=== PATIENT | female | born 1930 | race Caucasian/White ===

== ENCOUNTER 2016-03-07 11:23 | Emergency (ER) | payer MEDICARE, BC ==
[~2016-03-07] VITALS: Ht 152.4 cm; Wt 52.6 kg
[~2016-03-07 11:23] MED LIST: ALBUTEROL0.83 MG/ML IH; ASPIRIN 32325 MG/TAB PO; ASPIRIN 81M81 MG/TA2 PO; ASPIRIN E.C. 8181 MG PO; ATIVAN 1MG T1 MG/TAB PO; CARDIZEM CD 24240 MG PO; CARTIA XT120 MG PO; CARTIA XT240 MG PO; CELEXA10 MG PO; FENOFIBRATE54 MG PO; HCTZ 25MG25 MG PO; HCTZ PO; HCTZ12.5TAB PO; LABETALOL200 MG PO; LEVAQUIN 750MG750 M1 PO; LIPITOR20 MG PO; MACROBID 1100 MG/CAP PO; MUCINEX 60600 MG/TA1 PO; NORMODYNE100 MG PO; NORMODYNE200 MG PO; NORVASC 10MG10 MG PO; NORVASC5 MG PO; NYSTATIN OR100 MU/ML PO; PERFOROMIS20 MCG/2 M IH; PLAVIX 75MG TAB75 MG PO; PREDNISONE20 MG PO; RT SPIRIVA18 MCG IH; TRANDATE 200MG200 MG PO; ULTRAM 50MG TAB50 MG PO; ZOCOR 10MG10 MG PO; ZOCOR 40MG40 MG PO; ZOCOR40 MG PO
[2016-03-07 11:32] VITALS: TEMP 98
[2016-03-07] MEDS ORDERED: CORDARONE200 MG/TAB PO (12:13)
[2016-03-07] MEDS ORDERED: XARELTO20 MG PO (12:15)
[2016-03-07] MEDS ORDERED: NORVASC 10MG10 MG PO (13:49)
[2016-03-07 14:08] VITALS: BP 183/99; PULSE 88
== END 2016-03-07 14:10 | disposition home or self-care (01) ==
LOC: COL.ER 11:23
DX: I10 Essential (primary) hypertension (principal); R51 Headache

== ENCOUNTER 2016-03-10 09:02 | Outpatient (CLI) | payer MEDICARE, BC ==
[~2016-03-10] VITALS: Ht 152.4 cm; Wt 51.4 kg
[~2016-03-10 09:02] MED LIST changes: +CORDARONE200 MG/TAB PO; +XARELTO20 MG PO
[2016-03-10] MEDS ORDERED: PRINIVIL5 MG PO (09:39)
[2016-03-10] MEDS ORDERED: CARDIZEM CD 12120 MG PO (09:42)
[2016-03-10] MEDS ORDERED: NITROSTAT0.4 MG/TAB SL (09:43)
[2016-03-10 09:57] VITALS: BP 150/66; PULSE 79; TEMP 98.2
== END 2016-03-10 11:04 | disposition home or self-care (01) ==
LOC: EUO 09:02
DX: I48.91 Unspecified atrial fibrillation (principal); R94.31 Abnormal electrocardiogram [ECG] [EKG]

== ENCOUNTER 2016-06-05 06:58 | Observation (INO) | payer MEDICARE, BC ==
[~2016-06-05] VITALS: Ht 152.4 cm; Wt 49.9 kg
[~2016-06-05 06:58] MED LIST changes: +CARDIZEM CD 12120 MG PO; +NITROSTAT0.4 MG/TAB SL; +PRINIVIL5 MG PO
[2016-06-05 07:44] LABS: BASO # 0.1 (0.0-0.2); BASO % 0.6 % (0.0-2.0); EOS # 0.2 (0.0-0.7); EOS % 2.2 % (0-4.0); GRAN # 6.2 (1.4-6.5); GRAN % 77.2 % (42.2-75.2); HEMATOCRIT 37.8 % (37.0-47.0); HEMOGLOBIN 12.2 g/dl (12.5-16.0); LYMPH # 0.8 (1.2-3.4); LYMPH % 9.6 % (20.0-51.0); MEAN CELL VOLUME 86 fl (80.0-100.0); MEAN CORPUSCULAR HEMOGLOBIN 28 pg (27.0-31.0); MEAN CORPUSCULAR HGB CONC 32 g/dl (33.0-37.0); MEAN PLATELET VOLUME 10.6 fl (7.4-10.4); MONO # 0.8 (0.1-0.6); MONO % 10.3 % (1.7-9.3); PLATELET COUNT 311 K/mm3 (130-400); RED BLOOD COUNT 4.42 M/mm3 (4.10-5.30); REDCELL DISTRIBUTION WIDTH-CV 13.9 % (11.5-14.5); WHITE BLOOD COUNT 8.1 K/mm3 (4.8-10.8)
[2016-06-05 07:56] LABS: ADJUSTED CALCIUM 9.1 mg/dL (8.4-10.2); BILIRUBIN,TOTAL 0.7 mg/dL (0.0-1.0); CALCIUM 9.1 mg/dL (8.4-10.2); CREATININE, serum 0.97 mg/dL (0.52-1.25); POTASSIUM 4.3 mmol/L (3.4-5.0); TOTAL PROTEIN 6.5 gm/dL (6.4-8.2)
[2016-06-05 08:04] LABS: INR 1.1 (0.8-3.0); PROTHROMBIN TIME 12.4 SECONDS (9.7-12.8)
[2016-06-05 08:07] LABS: PARTIAL THROMBOPLASTIN TIME 56.4 SECONDS (26.0-37.0)
[2016-06-05 08:08] LABS: TROPONIN-I 0.016 ng/mL (0.000-0.034)
[2016-06-05 11:09] VITALS: PULSE 83; TEMP 98.3
[2016-06-05] MEDS ORDERED: HCTZ 25MG TAB25 MG PO (14:35)
[2016-06-05 16:33] VITALS: BP 148/60; PULSE 59; TEMP 98.1
[2016-06-05 19:52] VITALS: BP 149/48; PULSE 86; TEMP 98.3
[2016-06-06 00:39] VITALS: BP 139/77; PULSE 75; TEMP 97.5
[2016-06-06 04:04] VITALS: BP 150/83; PULSE 92; TEMP 97.8
[2016-06-06 07:30] VITALS: BP 176/76; PULSE 66; TEMP 98.7
[2016-06-06 11:30] VITALS: BP 155/90; PULSE 98; TEMP 97.5
== END 2016-06-06 14:50 | disposition home or self-care (01) ==
LOC: COL.ER 06:58 → MEDICAL 09:24
PROVIDERS: Family Medicine
DX: F41.9 Anxiety disorder, unspecified (principal); I50.9 Heart failure, unspecified; R00.2 Palpitations; R20.8 Other disturbances of skin sensation; R42 Dizziness and giddiness; I51.7 Cardiomegaly; R09.89 Other specified symptoms and signs involving the circulatory and respiratory systems; I25.10 Atherosclerotic heart disease of native coronary artery without angina pectoris; Z95.5 Presence of coronary angioplasty implant and graft; I25.2 Old myocardial infarction; I10 Essential (primary) hypertension; I73.9 Peripheral vascular disease, unspecified; Z95.828 Presence of other vascular implants and grafts; I48.91 Unspecified atrial fibrillation; K21.9 Gastro-esophageal reflux disease without esophagitis; Z87.891 Personal history of nicotine dependence
CPT/HCPCS: 99222-AI; G0378; J1940

== ENCOUNTER 2016-10-28 10:25 | Emergency (ER) | payer MEDICARE, BC ==
[~2016-10-28] VITALS: Ht 152.4 cm; Wt 49.7 kg
[~2016-10-28 10:25] MED LIST changes: +HCTZ 25MG TAB25 MG PO
[2016-10-28 10:27] VITALS: TEMP 98.4
[2016-10-28 11:42] LABS: BASO % 0.5 % (0.0-2.0); EOS # 0.2 (0.0-0.7); EOS % 1.7 % (0-4.0); GRAN % 81.2 % (42.2-75.2); HEMOGLOBIN 12.1 g/dl (12.5-16.0); LYMPH # 0.6 (1.2-3.4); LYMPH % 6.5 % (20.0-51.0); MEAN CELL VOLUME 88 fl (80.0-100.0); MEAN CORPUSCULAR HEMOGLOBIN 29 pg (27.0-31.0); MEAN CORPUSCULAR HGB CONC 33 g/dl (33.0-37.0); MONO # 0.8 (0.1-0.6); MONO % 9.5 % (1.7-9.3); PLATELET COUNT 250 K/mm3 (130-400); RED BLOOD COUNT 4.16 M/mm3 (4.10-5.30); REDCELL DISTRIBUTION WIDTH-CV 15.8 % (11.5-14.5); WHITE BLOOD COUNT 8.6 K/mm3 (4.8-10.8)
[2016-10-28 11:43] LABS: HEMATOCRIT 36.6 % (37.0-47.0)
[2016-10-28 11:52] LABS: ALANINE AMINOTRANSFERASE 24 U/L (9-52); ALBUMIN 3.8 gm/dL (3.5-5.0); ALKALINE PHOSPHATASE 54 U/L (50-136); ANION GAP 9 mmol/L (7-16); BILIRUBIN,TOTAL 0.8 mg/dL (0.0-1.0); BLOOD UREA NITROGEN 35 mg/dL (7-17); CALCIUM 8.8 mg/dL (8.4-10.2); CARBON DIOXIDE 25 mmol/L (22-30); CHLORIDE 100 mmol/L (98-107); CREATININE, serum 1.08 mg/dL (0.52-1.25); GLUCOSE 129 mg/dL (74-106); LIPASE 185 U/L (23-300); POTASSIUM 4.4 mmol/L (3.4-5.0); SODIUM 133 mmol/L (137-145); TOTAL PROTEIN 6.3 gm/dL (6.4-8.2)
[2016-10-28 11:53] LABS: C-REACTIVE PROTEIN < 0.5 mg/dL (0.0-0.9)
[2016-10-28 12:02] LABS: PH 6 (5-8); SQUAMOUS EPITHELIAL 0-2 /hpf; URINE APPEARANCE Clear; URINE BACTERIA None Seen /hpf; URINE BILIRUBIN Negative (NEGATIVE); URINE BLOOD 1+ (NEGATIVE); URINE COLOR Yellow; URINE GLUCOSE Negative (NEGATIVE); URINE KETONE Negative (NEGATIVE); URINE UROBILINOGEN Negative (NEGATIVE); URINE WBC 0-2 /hpf
[2016-10-28 14:46] VITALS: BP 165/64; PULSE 89
== END 2016-10-28 14:48 | disposition home or self-care (01) ==
LOC: COL.ER 10:25
PROVIDERS: Emergency Medicine
DX: R10.11 Right upper quadrant pain (principal); F41.9 Anxiety disorder, unspecified; R11.0 Nausea; R41.3 Other amnesia; M54.89 Other dorsalgia; Z79.02 Long term (current) use of antithrombotics/antiplatelets
CPT/HCPCS: J1885; J2405; J7030; Q9967

== ENCOUNTER → 2017-02-24 | Outpatient (REF) ==
[~2017-02-24] MED LIST changes: +CEFTIN 250250 MG/TAB PO; +INCRUSE EL62.5 MCG/A IH; +LASIX 20MG TABL20 MG PO; +LIPITOR 40MG TA40 MG PO; +XARELTO15 MG PO; +ZANTAC 150150 MG PO
== END ==
LOC: ZCOL.LAB 12:06
DX: Z01.89 Encounter for other specified special examinations (principal)

== ENCOUNTER → 2017-02-24 | Outpatient (REF) | LOC: ZLAB.WCH 11:43 | DX: Z01.89 Encounter for other specified special examinations (principal) ==

== ENCOUNTER → 2017-03-03 | Outpatient (REF) ==
[2017-03-03 13:05] LABS: COLLECTION METHOD CATHETER
[2017-03-03 13:15] LABS: MUCOUS Present /lpf; PH 6 (5-8); SQUAMOUS EPITHELIAL 0-2 /hpf; URINE APPEARANCE Clear; URINE BACTERIA None Seen /hpf; URINE BILIRUBIN Negative (NEGATIVE); URINE BLOOD Negative (NEGATIVE); URINE COLOR Straw; URINE GLUCOSE Negative (NEGATIVE); URINE KETONE Negative (NEGATIVE); URINE LEUKOCYTE ESTERASE Negative (NEGATIVE); URINE NITRATE Negative (NEGATIVE); URINE PROTEIN(semi-quant) Negative (NEGATIVE); URINE RBC 0-2 /hpf; URINE UROBILINOGEN Negative (NEGATIVE)
== END ==
LOC: ZCOL.LAB 13:03
PROVIDERS: Family Medicine
DX: Z01.89 Encounter for other specified special examinations (principal)

== ENCOUNTER 2017-03-20 18:28 | Inpatient (IN) | payer MEDICARE, BC ==
[~2017-03-20] VITALS: Ht 152.4 cm; Wt 47.6 kg
[2017-03-20] VITALS (54 sets, daily range): BP systolic 145; BP diastolic 76; PULSE 120; TEMP 100.6; O2SAT 91–100
[2017-03-20 19:35] LABS: MEAN CELL VOLUME 87 fl (80.0-100.0); MEAN CORPUSCULAR HGB CONC 33 g/dl (33.0-37.0); PLATELET COUNT 340 K/mm3 (130-400); RED BLOOD COUNT 3.49 M/mm3 (4.10-5.30); REDCELL DISTRIBUTION WIDTH-CV 13.6 % (11.5-14.5)
[2017-03-20 19:36] LABS: HEMATOCRIT 30.4 % (37.0-47.0); MEAN CORPUSCULAR HEMOGLOBIN 29 pg (27.0-31.0)
[2017-03-20 19:50] LABS: BAND 2 % (0-10); LYMPHOCYTE 3 % (20.0-51.0); NEUTROPHILS 90 % (42.0-75.2); PLATELET ESTIMATE NORMAL (NORMAL)
[2017-03-20 20:02] LABS: ALBUMIN 3.9 gm/dL (3.5-5.0); BILIRUBIN,TOTAL 0.8 mg/dL (0.0-1.0); C-REACTIVE PROTEIN 1.1 mg/dL (0.0-0.9); CREATININE, serum 1.2 mg/dL (0.52-1.25); POTASSIUM 3.6 mmol/L (3.4-5.0); TOTAL PROTEIN 6.5 gm/dL (6.4-8.2)
[2017-03-20 21:08] LABS: COLLECTION METHOD CLEAN CATCH
[2017-03-20 21:15] LABS: PH 5 (5-8); SQUAMOUS EPITHELIAL 0-2 /hpf; URINE APPEARANCE Clear; URINE BACTERIA None Seen /hpf; URINE BILIRUBIN Negative (NEGATIVE); URINE BLOOD Negative (NEGATIVE); URINE COLOR Yellow; URINE GLUCOSE Negative (NEGATIVE); URINE KETONE Negative (NEGATIVE); URINE LEUKOCYTE ESTERASE Negative (NEGATIVE); URINE NITRATE Negative (NEGATIVE); URINE PROTEIN(semi-quant) 1+ (NEGATIVE); URINE RBC 0-2 /hpf; URINE UROBILINOGEN Negative (NEGATIVE)
[2017-03-21] VITALS (1060 sets, daily range): BP systolic 110–143; BP diastolic 53–96; PULSE 76–116; TEMP 98.3–100; O2SAT 64–100
[2017-03-21 06:02] LABS: BASO % 0.2 % (0.0-2.0); EOS % 0.3 % (0-4.0); GRAN # 11.7 (1.4-6.5); GRAN % 86.9 % (42.2-75.2); LYMPH # 0.5 (1.2-3.4); MEAN CELL VOLUME 90 fl (80.0-100.0); MEAN CORPUSCULAR HGB CONC 32 g/dl (33.0-37.0); MEAN PLATELET VOLUME 10.1 fl (7.4-10.4); MONO # 1.1 (0.1-0.6); MONO % 8.1 % (1.7-9.3); PLATELET COUNT 293 K/mm3 (130-400); RED BLOOD COUNT 3.02 M/mm3 (4.10-5.30); REDCELL DISTRIBUTION WIDTH-CV 13.9 % (11.5-14.5)
[2017-03-21 06:13] LABS: HEMATOCRIT 27.2 % (37.0-47.0); HEMOGLOBIN 8.7 g/dl (12.5-16.0); MEAN CORPUSCULAR HEMOGLOBIN 29 pg (27.0-31.0)
[2017-03-21 06:17] LABS: CALCIUM 8.4 mg/dL (8.4-10.2); CREATININE, serum 1.08 mg/dL (0.52-1.25); MAGNESIUM 1.9 mg/dL (1.6-2.3); PHOSPHOROUS 3.5 mg/dL (2.5-4.5); POTASSIUM 3.5 mmol/L (3.4-5.0)
[2017-03-21 06:42] LABS: THYROID STIMULATING HORMONE 1.38 uIU/mL (0.465-4.680)
[2017-03-21] MEDS ORDERED: XARELTO20 MG PO (17:08)
[2017-03-21] MEDS ORDERED: HCTZ 25MG TAB25 MG PO (17:08)
[2017-03-21] MEDS ORDERED: TOPROL XL 25MG25 MG PO (17:09)
[2017-03-21] MEDS ORDERED: LASIX 20MG TABL20 MG PO (17:18)
[2017-03-21] MEDS ORDERED: ATIVAN 1MG T1 MG/TAB PO (17:18)
[2017-03-21] MEDS ORDERED: INCRUSE EL62.5 MCG/A IH (18:24)
[2017-03-21] MEDS ORDERED: IPRATROPIUM BROM3 M1 IH (18:28)
[2017-03-22] VITALS (911 sets, daily range): BP systolic 116–148; BP diastolic 51–88; PULSE 59–89; TEMP 97.5–99.2; O2SAT 65–100
[2017-03-22 06:15] LABS: MEAN CELL VOLUME 89 fl (80.0-100.0); MEAN CORPUSCULAR HGB CONC 33 g/dl (33.0-37.0); PLATELET COUNT 302 K/mm3 (130-400); RED BLOOD COUNT 2.95 M/mm3 (4.10-5.30); REDCELL DISTRIBUTION WIDTH-CV 13.8 % (11.5-14.5)
[2017-03-22 06:21] LABS: HEMATOCRIT 26.1 % (37.0-47.0); HEMOGLOBIN 8.6 g/dl (12.5-16.0); MEAN CORPUSCULAR HEMOGLOBIN 29 pg (27.0-31.0)
[2017-03-22 06:32] LABS: ALBUMIN 3.1 gm/dL (3.5-5.0); BILIRUBIN,TOTAL 1.1 mg/dL (0.0-1.0); CALCIUM 8.3 mg/dL (8.4-10.2); CREATININE, serum 1.15 mg/dL (0.52-1.25); POTASSIUM 3.5 mmol/L (3.4-5.0); TOTAL PROTEIN 5.7 gm/dL (6.4-8.2)
[2017-03-22 06:42] LABS: TROPONIN-I 0.016 ng/mL (0.000-0.034)
[2017-03-23] VITALS (569 sets, daily range): BP systolic 110–165; BP diastolic 52–98; PULSE 82–103; TEMP 96.2–97.9; O2SAT 73–97
[2017-03-23 05:41] LABS: MEAN CELL VOLUME 88 fl (80.0-100.0); MEAN CORPUSCULAR HGB CONC 32 g/dl (33.0-37.0); MEAN PLATELET VOLUME 10.1 fl (7.4-10.4); PLATELET COUNT 320 K/mm3 (130-400); RED BLOOD COUNT 2.84 M/mm3 (4.10-5.30); REDCELL DISTRIBUTION WIDTH-CV 13.7 % (11.5-14.5)
[2017-03-23 05:51] LABS: HEMATOCRIT 25.1 % (37.0-47.0); HEMOGLOBIN 8.1 g/dl (12.5-16.0); MEAN CORPUSCULAR HEMOGLOBIN 29 pg (27.0-31.0)
[2017-03-23 05:56] LABS: ALBUMIN 3.3 gm/dL (3.5-5.0); BILIRUBIN,TOTAL 0.5 mg/dL (0.0-1.0); CREATININE, serum 1.36 mg/dL (0.52-1.25); POTASSIUM 3.7 mmol/L (3.4-5.0); TOTAL PROTEIN 6.1 gm/dL (6.4-8.2)
[2017-03-24] VITALS (10 sets, daily range): BP systolic 126–172; BP diastolic 44–96; PULSE 58–108; TEMP 97.3–98.6
[2017-03-24 18:13] LABS: ARTERIAL BLD GAS O2 SATURATION 91.6 % (92-100); ARTERIAL BLD GAS TCO2 CT 28.1; ARTERIAL BLOOD GAS BASE EXCESS 2.9 (-2-2); ARTERIAL BLOOD GAS HCO3 26.9 meq/L (22-26); ARTERIAL BLOOD GAS PCO2 39.1 mmHg (35-45); ARTERIAL BLOOD GAS PO2 63.9 mmHg (80-100); ARTERIAL BLOOD GAS pH 7.46 (7.35-7.45)
[2017-03-24 20:53] LABS: ARTERIAL BLD GAS O2 SATURATION 90.2 % (92-100); ARTERIAL BLD GAS TCO2 CT 29.6; ARTERIAL BLOOD GAS BASE EXCESS 2.9 (-2-2); ARTERIAL BLOOD GAS HCO3 28.2 meq/L (22-26); ARTERIAL BLOOD GAS PCO2 46.6 mmHg (35-45)
[2017-03-25 04:23] VITALS: BP 140/60; PULSE 57; TEMP 98.2
[2017-03-25 06:24] LABS: MEAN CELL VOLUME 89 fl (80.0-100.0); MEAN CORPUSCULAR HGB CONC 32 g/dl (33.0-37.0); MEAN PLATELET VOLUME 9.7 fl (7.4-10.4); RED BLOOD COUNT 2.95 M/mm3 (4.10-5.30)
[2017-03-25 06:30] LABS: HEMATOCRIT 26.2 % (37.0-47.0); HEMOGLOBIN 8.4 g/dl (12.5-16.0); MEAN CORPUSCULAR HEMOGLOBIN 28 pg (27.0-31.0); PLATELET COUNT 517 K/mm3 (130-400)
[2017-03-25 06:31] LABS: CALCIUM 8.8 mg/dL (8.4-10.2); CREATININE, serum 1.07 mg/dL (0.52-1.25); POTASSIUM 4.2 mmol/L (3.4-5.0)
[2017-03-25 07:52] VITALS: BP 104/48; PULSE 118; TEMP 97.5
[2017-03-25 09:08] LABS: BAND 12 % (0-10); BASOPHIL 1 % (0-2); LYMPHOCYTE 6 % (20.0-51.0); NEUTROPHILS 80 % (42.0-75.2); OVALOCYTES 2+; PLATELET ESTIMATE INCREASED (NORMAL)
[2017-03-25 11:53] VITALS: BP 156/95; PULSE 104; TEMP 98.3
[2017-03-25 16:00] VITALS: BP 158/52; PULSE 84; TEMP 98.1
[2017-03-25 19:55] VITALS: BP 134/94; PULSE 98; TEMP 98
[2017-03-25 23:41] VITALS: BP 178/63; PULSE 89; TEMP 98.3
[2017-03-26] VITALS (7 sets, daily range): BP systolic 143–182; BP diastolic 56–83; PULSE 70–99; TEMP 97–98.4
[2017-03-26 06:41] LABS: MEAN CELL VOLUME 89 fl (80.0-100.0); MEAN CORPUSCULAR HGB CONC 32 g/dl (33.0-37.0); MEAN PLATELET VOLUME 9.5 fl (7.4-10.4); PLATELET COUNT 438 K/mm3 (130-400); RED BLOOD COUNT 2.73 M/mm3 (4.10-5.30); REDCELL DISTRIBUTION WIDTH-CV 13.9 % (11.5-14.5)
[2017-03-26 06:47] LABS: HEMATOCRIT 24.3 % (37.0-47.0); HEMOGLOBIN 7.8 g/dl (12.5-16.0); MEAN CORPUSCULAR HEMOGLOBIN 29 pg (27.0-31.0)
[2017-03-26 06:56] LABS: CALCIUM 8.4 mg/dL (8.4-10.2); CREATININE, serum 0.95 mg/dL (0.52-1.25); POTASSIUM 3.9 mmol/L (3.4-5.0)
[2017-03-26 10:29] LABS: BAND 3 % (0-10); EOSINOPHIL 1 % (0-4); LYMPHOCYTE 4 % (20.0-51.0); METAMYELOCYTE 2 % (0-0); NEUTROPHILS 82 % (42.0-75.2); NUCLEATED RED BLOOD CELL 1 (0-6); PLATELET ESTIMATE INCREASED (NORMAL)
[2017-03-26 10:30] LABS: ANISOCYTOSIS 1+; HYPOCHROMIA 1+; POIKILOCYTOSIS 1+
[2017-03-27 05:00] VITALS: BP 156/40; PULSE 74; TEMP 97.9
[2017-03-27 06:59] LABS: MEAN CELL VOLUME 89 fl (80.0-100.0); MEAN CORPUSCULAR HGB CONC 32 g/dl (33.0-37.0); MEAN PLATELET VOLUME 9.6 fl (7.4-10.4); PLATELET COUNT 507 K/mm3 (130-400); RED BLOOD COUNT 2.82 M/mm3 (4.10-5.30); REDCELL DISTRIBUTION WIDTH-CV 13.8 % (11.5-14.5)
[2017-03-27 07:08] LABS: CALCIUM 8.5 mg/dL (8.4-10.2); CREATININE, serum 0.84 mg/dL (0.52-1.25); POTASSIUM 4.1 mmol/L (3.4-5.0)
[2017-03-27 07:11] LABS: HEMATOCRIT 25.1 % (37.0-47.0); HEMOGLOBIN 7.9 g/dl (12.5-16.0); MEAN CORPUSCULAR HEMOGLOBIN 28 pg (27.0-31.0)
[2017-03-27 07:48] VITALS: BP 171/74; PULSE 73; TEMP 97.9
[2017-03-27 09:05] LABS: BAND 1 % (0-10); EOSINOPHIL 1 % (0-4); HYPOCHROMIA 2+; LYMPHOCYTE 7 % (20.0-51.0); METAMYELOCYTE 1 % (0-0); NEUTROPHILS 79 % (42.0-75.2); NUCLEATED RED BLOOD CELL 1 (0-6); PLATELET ESTIMATE INCREASED (NORMAL)
[2017-03-27 10:55] VITALS: BP 137/89; PULSE 89; TEMP 98
[2017-03-27 15:33] VITALS: BP 138/89; PULSE 105; TEMP 99.7
[2017-03-27 19:47] VITALS: BP 142/84; PULSE 60; TEMP 98.7
[2017-03-27 23:56] VITALS: BP 163/90; PULSE 81; TEMP 98.5
[2017-03-28 03:28] VITALS: BP 151/94; PULSE 73; TEMP 97
[2017-03-28 06:31] LABS: MEAN CELL VOLUME 90 fl (80.0-100.0); MEAN CORPUSCULAR HGB CONC 31 g/dl (33.0-37.0); MEAN PLATELET VOLUME 9.3 fl (7.4-10.4); PLATELET COUNT 482 K/mm3 (130-400); RED BLOOD COUNT 2.79 M/mm3 (4.10-5.30)
[2017-03-28 06:56] LABS: CALCIUM 8.5 mg/dL (8.4-10.2); CREATININE, serum 1.02 mg/dL (0.52-1.25); POTASSIUM 4.1 mmol/L (3.4-5.0)
[2017-03-28 06:57] LABS: HEMATOCRIT 25.2 % (37.0-47.0); HEMOGLOBIN 7.8 g/dl (12.5-16.0); MEAN CORPUSCULAR HEMOGLOBIN 28 pg (27.0-31.0)
[2017-03-28 07:45] VITALS: BP 175/79; PULSE 81; TEMP 98
[2017-03-28 07:50] LABS: BAND 2 % (0-10); EOSINOPHIL 3 % (0-4); HYPOCHROMIA 2+; LYMPHOCYTE 9 % (20.0-51.0); METAMYELOCYTE 2 % (0-0); NEUTROPHILS 76 % (42.0-75.2); NUCLEATED RED BLOOD CELL 1 (0-6); PLATELET ESTIMATE INCREASED (NORMAL)
[2017-03-28 09:56] LABS: INR 2.5 (0.8-3.0); PROTHROMBIN TIME 29.8 SECONDS (9.7-12.8)
[2017-03-28 11:51] VITALS: BP 140/55; PULSE 75; TEMP 98.4
[2017-03-28 12:27] LABS: PARTIAL THROMBOPLASTIN TIME 73.8 SECONDS (26.0-37.0)
[2017-03-28 15:04] LABS: PARTIAL THROMBOPLASTIN TIME 69.9 SECONDS (26.0-37.0)
[2017-03-28 15:46] VITALS: BP 155/65; PULSE 79; TEMP 98.4
[2017-03-28 17:18] LABS: PARTIAL THROMBOPLASTIN TIME 70.5 SECONDS (26.0-37.0)
[2017-03-28 18:57] LABS: PARTIAL THROMBOPLASTIN TIME 69.9 SECONDS (26.0-37.0)
[2017-03-28 19:39] VITALS: BP 157/104; PULSE 92; TEMP 97.7
[2017-03-28 20:52] LABS: PARTIAL THROMBOPLASTIN TIME 66.7 SECONDS (26.0-37.0)
[2017-03-29 00:02] VITALS: BP 137/47; PULSE 78; TEMP 98
[2017-03-29 05:00] VITALS: BP 152/53; PULSE 81
[2017-03-29 07:05] LABS: MEAN CELL VOLUME 90 fl (80.0-100.0); MEAN CORPUSCULAR HGB CONC 31 g/dl (33.0-37.0); MEAN PLATELET VOLUME 9.7 fl (7.4-10.4); PLATELET COUNT 503 K/mm3 (130-400); RED BLOOD COUNT 2.75 M/mm3 (4.10-5.30); REDCELL DISTRIBUTION WIDTH-CV 14.2 % (11.5-14.5)
[2017-03-29 07:17] LABS: CALCIUM 8.4 mg/dL (8.4-10.2); CREATININE, serum 0.88 mg/dL (0.52-1.25); POTASSIUM 3.8 mmol/L (3.4-5.0)
[2017-03-29 07:18] LABS: HEMATOCRIT 24.7 % (37.0-47.0); HEMOGLOBIN 7.6 g/dl (12.5-16.0); MEAN CORPUSCULAR HEMOGLOBIN 28 pg (27.0-31.0)
[2017-03-29 07:50] VITALS: BP 153/78; PULSE 87; TEMP 97.8
[2017-03-29 08:32] LABS: BAND 8 % (0-10); EOSINOPHIL 8 % (0-4); LYMPHOCYTE 8 % (20.0-51.0); NEUTROPHILS 72 % (42.0-75.2)
[2017-03-29 08:33] LABS: HYPOCHROMIA 2+; PLATELET ESTIMATE INCREASED (NORMAL)
[2017-03-29 08:34] LABS: POLYCHROMASIA 1+
[2017-03-29 11:43] VITALS: BP 154/54; PULSE 89; TEMP 98.1
[2017-03-29 15:47] VITALS: BP 144/48; PULSE 99; TEMP 98.6
[2017-03-29 21:22] VITALS: BP 129/52; PULSE 100; TEMP 97.4
[2017-03-30 00:05] VITALS: BP 148/52; PULSE 78; TEMP 97.9
[2017-03-30 04:14] VITALS: BP 157/49; PULSE 86; TEMP 97.9
[2017-03-30 06:26] LABS: MEAN CELL VOLUME 89 fl (80.0-100.0); MEAN CORPUSCULAR HGB CONC 31 g/dl (33.0-37.0); MEAN PLATELET VOLUME 9.6 fl (7.4-10.4); PLATELET COUNT 477 K/mm3 (130-400); RED BLOOD COUNT 2.69 M/mm3 (4.10-5.30); REDCELL DISTRIBUTION WIDTH-CV 14.4 % (11.5-14.5)
[2017-03-30 06:27] LABS: HEMOGLOBIN 7.5 g/dl (12.5-16.0); MEAN CORPUSCULAR HEMOGLOBIN 28 pg (27.0-31.0)
[2017-03-30 06:49] LABS: CALCIUM 8.4 mg/dL (8.4-10.2); CREATININE, serum 0.91 mg/dL (0.52-1.25); POTASSIUM 3.9 mmol/L (3.4-5.0)
[2017-03-30 07:26] VITALS: BP 165/82; PULSE 82; TEMP 98.4
[2017-03-30 07:35] LABS: BAND 2 % (0-10); BASOPHIL 3 % (0-2); EOSINOPHIL 2 % (0-4); LYMPHOCYTE 12 % (20.0-51.0); NEUTROPHILS 73 % (42.0-75.2); POLYCHROMASIA 2+; TARGET CELLS 2+
[2017-03-30 07:36] LABS: HYPOCHROMIA 1+; PLATELET ESTIMATE INCREASED (NORMAL)
[2017-03-30 07:37] LABS: ANISOCYTOSIS 1+
[2017-03-30 11:27] VITALS: BP 144/67; PULSE 75; TEMP 98.2
[2017-03-30 16:12] VITALS: BP 150/59; PULSE 100; TEMP 98.5
[2017-03-30 20:00] VITALS: BP 165/64; PULSE 98; TEMP 97.6
[2017-03-31 00:17] VITALS: BP 151/56; PULSE 77; TEMP 98.7
[2017-03-31 03:35] VITALS: BP 153/63; PULSE 94; TEMP 98.5
[2017-03-31 07:16] LABS: MEAN CELL VOLUME 89 fl (80.0-100.0); MEAN CORPUSCULAR HGB CONC 31 g/dl (33.0-37.0); MEAN PLATELET VOLUME 9.8 fl (7.4-10.4); PLATELET COUNT 541 K/mm3 (130-400); RED BLOOD COUNT 2.94 M/mm3 (4.10-5.30); REDCELL DISTRIBUTION WIDTH-CV 14.4 % (11.5-14.5)
[2017-03-31 07:18] LABS: HEMATOCRIT 26.1 % (37.0-47.0); HEMOGLOBIN 8.1 g/dl (12.5-16.0); MEAN CORPUSCULAR HEMOGLOBIN 28 pg (27.0-31.0)
[2017-03-31 07:29] LABS: CALCIUM 8.5 mg/dL (8.4-10.2); CREATININE, serum 0.89 mg/dL (0.52-1.25); POTASSIUM 3.7 mmol/L (3.4-5.0)
[2017-03-31 08:27] VITALS: BP 93/43; PULSE 72; TEMP 98.4
[2017-03-31 08:40] LABS: BAND 6 % (0-10); EOSINOPHIL 4 % (0-4); HYPOCHROMIA 2+; LYMPHOCYTE 9 % (20.0-51.0); NEUTROPHILS 77 % (42.0-75.2); NUCLEATED RED BLOOD CELL 1 (0-6); PLATELET ESTIMATE INCREASED (NORMAL)
[2017-03-31 12:02] VITALS: BP 113/40; PULSE 80; TEMP 98.4
[2017-03-31 16:11] VITALS: BP 135/51; PULSE 81; TEMP 98.4
[2017-03-31 20:11] VITALS: BP 124/75; PULSE 84; TEMP 98.3
[2017-04-01] VITALS (7 sets, daily range): BP systolic 113–151; BP diastolic 45–85; PULSE 60–82; TEMP 97.7–98.8
[2017-04-01 07:42] LABS: MEAN CELL VOLUME 91 fl (80.0-100.0); MEAN CORPUSCULAR HGB CONC 30 g/dl (33.0-37.0); MEAN PLATELET VOLUME 9.9 fl (7.4-10.4); PLATELET COUNT 599 K/mm3 (130-400); RED BLOOD COUNT 2.84 M/mm3 (4.10-5.30); REDCELL DISTRIBUTION WIDTH-CV 14.6 % (11.5-14.5)
[2017-04-01 07:45] LABS: HEMATOCRIT 25.7 % (37.0-47.0); HEMOGLOBIN 7.8 g/dl (12.5-16.0); MEAN CORPUSCULAR HEMOGLOBIN 27 pg (27.0-31.0)
[2017-04-01 07:59] LABS: CALCIUM 8.6 mg/dL (8.4-10.2); CREATININE, serum 1.02 mg/dL (0.52-1.25); MAGNESIUM 1.8 mg/dL (1.6-2.3); PHOSPHOROUS 3.7 mg/dL (2.5-4.5); POTASSIUM 3.7 mmol/L (3.4-5.0)
[2017-04-01 09:24] LABS: BAND 7 % (0-10); BASOPHIL 1 % (0-2); EOSINOPHIL 2 % (0-4); HYPOCHROMIA 3+; LYMPHOCYTE 9 % (20.0-51.0); NEUTROPHILS 79 % (42.0-75.2); PLATELET ESTIMATE INCREASED (NORMAL)
[2017-04-02 04:20] VITALS: BP 154/44; PULSE 69; TEMP 97.7
[2017-04-02 07:49] LABS: MAGNESIUM 2.3 mg/dL (1.6-2.3); PHOSPHOROUS 3.8 mg/dL (2.5-4.5)
[2017-04-02 07:50] LABS: MEAN CELL VOLUME 89 fl (80.0-100.0); MEAN CORPUSCULAR HGB CONC 31 g/dl (33.0-37.0); MEAN PLATELET VOLUME 9.8 fl (7.4-10.4); RED BLOOD COUNT 2.77 M/mm3 (4.10-5.30); REDCELL DISTRIBUTION WIDTH-CV 14.5 % (11.5-14.5)
[2017-04-02 07:54] LABS: CALCIUM 8.4 mg/dL (8.4-10.2); CREATININE, serum 1.18 mg/dL (0.52-1.25); HEMATOCRIT 24.6 % (37.0-47.0); HEMOGLOBIN 7.5 g/dl (12.5-16.0); MEAN CORPUSCULAR HEMOGLOBIN 27 pg (27.0-31.0); PLATELET COUNT 492 K/mm3 (130-400); POTASSIUM 3.9 mmol/L (3.4-5.0)
[2017-04-02 08:36] VITALS: BP 145/75; PULSE 59; TEMP 98
[2017-04-02 10:24] LABS: BAND 10 % (0-10); LYMPHOCYTE 6 % (20.0-51.0); NEUTROPHILS 82 % (42.0-75.2)
[2017-04-02 10:24] LABS: INR 1.2 (0.8-3.0); PROTHROMBIN TIME 13.8 SECONDS (9.7-12.8)
[2017-04-02 10:25] LABS: PLATELET ESTIMATE INCREASED (NORMAL)
[2017-04-02 10:26] LABS: HYPOCHROMIA 2+; POLYCHROMASIA 1+
[2017-04-02 10:27] LABS: MICROCYTOSIS 2+
[2017-04-02 11:23] VITALS: BP 117/79; PULSE 42; TEMP 98.7
[2017-04-02 15:50] VITALS: BP 126/56; PULSE 92; TEMP 98
[2017-04-02 15:59] LABS: PLEURAL FLUID COLOR AMBER
[2017-04-02 16:00] LABS: PLEURAL FLUID APPEARANCE HAZY
[2017-04-02 16:08] LABS: PLEURAL FLUID RBC 11000 /mm3 (0-0); PLEURAL FLUID WBC 1042 /mm3
[2017-04-02 16:10] LABS: GLUCOSE,PLEURAL FLUID 157 mg/dL
[2017-04-02 16:11] LABS: TOTAL PROTEIN,PLEURAL FLUID < 2.0 gm/dL
[2017-04-02 20:04] VITALS: BP 147/73; PULSE 78; TEMP 98.3
[2017-04-03 00:05] VITALS: BP 137/48; PULSE 64; TEMP 98.8
[2017-04-03 03:19] VITALS: BP 129/87; PULSE 86; TEMP 98.6
[2017-04-03 07:02] LABS: BASO # 0.1 (0.0-0.2); BASO % 0.3 % (0.0-2.0); EOS # 0.2 (0.0-0.7); EOS % 1.3 % (0-4.0); GRAN # 13.6 (1.4-6.5); GRAN % 86.3 % (42.2-75.2); LYMPH # 0.7 (1.2-3.4); LYMPH % 4.3 % (20.0-51.0); MEAN CELL VOLUME 89 fl (80.0-100.0); MEAN CORPUSCULAR HGB CONC 30 g/dl (33.0-37.0); MEAN PLATELET VOLUME 9.7 fl (7.4-10.4); MONO % 6.6 % (1.7-9.3); PLATELET COUNT 482 K/mm3 (130-400); RED BLOOD COUNT 2.78 M/mm3 (4.10-5.30); REDCELL DISTRIBUTION WIDTH-CV 14.6 % (11.5-14.5)
[2017-04-03 07:23] LABS: CALCIUM 8.6 mg/dL (8.4-10.2); CREATININE, serum 1.11 mg/dL (0.52-1.25)
[2017-04-03 07:28] LABS: HEMATOCRIT 24.8 % (37.0-47.0); HEMOGLOBIN 7.5 g/dl (12.5-16.0); MEAN CORPUSCULAR HEMOGLOBIN 27 pg (27.0-31.0)
[2017-04-03 08:34] VITALS: BP 141/42; PULSE 75; TEMP 98.2
[2017-04-03] MEDS ORDERED: ELIQUIS 2.5 PO (11:33)
[2017-04-03] MEDS ORDERED: TOPROL XL 25MG25 MG PO (11:33)
[2017-04-03] MEDS ORDERED: ATIVAN 1MG T1 MG/TAB PO (11:50)
[2017-04-03 11:58] VITALS: BP 131/56; PULSE 70; TEMP 97.9
== END 2017-04-03 13:52 | DRG 871 ==
LOC: COL.ER 18:28 → ICU 21:10 → MEDICAL 03-23 15:18
PROVIDERS: Family Medicine; Internal Medicine; Nurse Practitioner Family; Physician Assistant
PROC: 0W9B3ZX Drainage of Left Pleural Cavity, Percutaneous Approach, Diagnostic (ICD-10-PCS; principal; 2017-04-02)
DX: A41.9 Sepsis, unspecified organism (principal); J18.9 Pneumonia, unspecified organism; I50.32 Chronic diastolic (congestive) heart failure; J90 Pleural effusion, not elsewhere classified; E87.1 Hypo-osmolality and hyponatremia; N17.9 Acute kidney failure, unspecified; Z66 Do not resuscitate; I48.2 Chronic atrial fibrillation; I25.10 Atherosclerotic heart disease of native coronary artery without angina pectoris; R73.03 Prediabetes; I11.0 Hypertensive heart disease with heart failure; Z95.5 Presence of coronary angioplasty implant and graft; Z79.01 Long term (current) use of anticoagulants; Z87.891 Personal history of nicotine dependence; I73.9 Peripheral vascular disease, unspecified; Z95.820 Peripheral vascular angioplasty status with implants and grafts
CPT/HCPCS: 99222; 99222-AI; 99223-AI; 99231-AI; 99232-AI; 99233-AI; 99239; J0456; J0696; J1644; J1815; J2060; J3475; J7030; J7050

== ENCOUNTER 2017-04-26 12:03 | Day surgery (SDC) | payer MEDICARE, BC ==
[~2017-04-26] VITALS: Ht 152.5 cm; Wt 48.6 kg
[~2017-04-26 12:03] MED LIST changes: +ELIQUIS 2.5 PO; +IPRATROPIUM BROM3 M1 IH; +TOPROL XL 25MG25 MG PO
[2017-04-26 12:55] LABS: INR 1.4 (0.8-3.0); PROTHROMBIN TIME 16.6 SECONDS (9.7-12.8)
[2017-04-26 13:00] VITALS: BP 134/52; PULSE 78; TEMP 98.6
[2017-04-26 13:00] LABS: POTASSIUM 3.8 mmol/L (3.4-5.0)
[2017-04-26] MEDS ORDERED: VTAMINC250TA PO (13:08)
[2017-04-26] MEDS ORDERED: ELIQUIS 2.5 PO (13:10)
[2017-04-26] MEDS ORDERED: FERRO-TIME325 MG PO (13:11)
[2017-04-26] MEDS ORDERED: RT ALBUTER2.5 MG/0.5 IH (13:14)
[2017-04-26] MEDS ORDERED: TOPROL XL 25MG25 MG PO (13:15)
[2017-04-26] MEDS ORDERED: MILK OF MA400 MG/52 PO (13:16)
[2017-04-26] MEDS ORDERED: ALMACONE 360 M360 ML PO (13:17)
[2017-04-26] MEDS ORDERED: TYLENOL 325MG325 MG PO (13:18)
[2017-04-26] MEDS ORDERED: IMODIUM 2MG CAPS2 MG PO (13:19)
[2017-04-26] MEDS ORDERED: GENTLE LAXATIVE10 MG RC (13:20)
[2017-04-26] MEDS ORDERED: ATIVAN 1MG T1 MG/TAB PO (13:20)
[2017-04-26 13:35] LABS: THYROID STIMULATING HORMONE 3.15 uIU/mL (0.465-4.680)
[2017-04-26 15:30] VITALS: BP 152/59; PULSE 88
[2017-04-26 15:45] VITALS: BP 149/71; PULSE 83
[2017-04-26 16:00] VITALS: BP 154/78; PULSE 79
[2017-04-26 16:15] VITALS: BP 158/65; PULSE 83
[2017-04-26 16:30] VITALS: BP 145/64; PULSE 85; TEMP 98
== END 2017-04-26 16:55 | disposition home or self-care (01) ==
LOC: COL.CAR 12:03
PROVIDERS: Internal Medicine Interventional Cardiology
DX: I48.0 Paroxysmal atrial fibrillation (principal); I25.10 Atherosclerotic heart disease of native coronary artery without angina pectoris; J90 Pleural effusion, not elsewhere classified; I11.0 Hypertensive heart disease with heart failure; I50.30 Unspecified diastolic (congestive) heart failure; E78.5 Hyperlipidemia, unspecified; M19.90 Unspecified osteoarthritis, unspecified site; I73.9 Peripheral vascular disease, unspecified; J44.9 Chronic obstructive pulmonary disease, unspecified; I25.2 Old myocardial infarction; K21.9 Gastro-esophageal reflux disease without esophagitis; F32.9 Major depressive disorder, single episode, unspecified; Z88.0 Allergy status to penicillin; Z88.1 Allergy status to other antibiotic agents; Z88.3 Allergy status to other anti-infective agents; Z88.8 Allergy status to other drugs, medicaments and biological substances; Z79.82 Long term (current) use of aspirin; Z79.01 Long term (current) use of anticoagulants; Z95.5 Presence of coronary angioplasty implant and graft; Z87.891 Personal history of nicotine dependence
CPT/HCPCS: G9654; J0282; J2704; J7030; J7060

== ENCOUNTER 2017-12-28 12:40 | Emergency (ER) | payer MEDICARE, BC ==
[~2017-12-28] VITALS: Ht 152.4 cm; Wt 48.6 kg
[~2017-12-28 12:40] MED LIST changes: +ALMACONE 360 M360 ML PO; +FERRO-TIME325 MG PO; +GENTLE LAXATIVE10 MG RC; +IMODIUM 2MG CAPS2 MG PO; +MILK OF MA400 MG/52 PO; +RT ALBUTER2.5 MG/0.5 IH; +TYLENOL 325MG325 MG PO; +VTAMINC250TA PO
[2017-12-28 12:45] VITALS: BP 163/71; TEMP 98.9
[2017-12-28] MEDS ORDERED: NORCO 325 MG-51 TAB PO (13:52)
[2017-12-28] MEDS ORDERED: PREDNISONE10 MG PO (13:52)
[2017-12-28 14:00] VITALS: PULSE 90
== END 2017-12-28 14:00 | disposition home or self-care (01) ==
LOC: COL.ER 12:40
DX: M19.041 Primary osteoarthritis, right hand (principal); Z79.02 Long term (current) use of antithrombotics/antiplatelets; Z79.82 Long term (current) use of aspirin
CPT/HCPCS: J7512

== ENCOUNTER 2018-02-28 17:29 | Inpatient (IN) | payer MEDICARE, BC ==
[~2018-02-28] VITALS: Ht 152.4 cm; Wt 49.1 kg
[~2018-02-28 17:29] MED LIST changes: -ZOFRAN 4MG T4 MG/TAB PO
[2018-02-28] MEDS ORDERED: IPRATROPIUM BROM3 M1 IH (17:51)
[2018-02-28] MEDS ORDERED: ZOFRAN 4MG T4 MG/TAB PO (17:53)
[2018-02-28] MEDS ORDERED: INCRUSE EL62.5 MCG/A IH (17:57)
--- NOTE | 2018-02-28 18:30 | NUR ---
Pt arrived to room 315, she is awake and alert. She is able to transfer independently in room to recliner. She remains on 2L O2 per NC, resp. are even and unlabored. Medications/allergies/pharm reviewed per daughter's list. Oriented to room and to staff. GIRMA Christian aware of arrival.
[2018-02-28 19:26] VITALS: BP 148/55; PULSE 71; TEMP 97.7
[2018-02-28 20:42] LABS: BASO # 0.1 (0.0-0.2); BASO % 0.3 % (0.0-2.0); EOS # 0.6 (0.0-0.7); EOS % 3.4 % (0-4.0); GRAN # 14.6 (1.4-6.5); GRAN % 84.3 % (42.2-75.2); HEMOGLOBIN 12.2 g/dl (12.5-16.0); LYMPH # 0.7 (1.2-3.4); LYMPH % 3.9 % (20.0-51.0); MEAN CELL VOLUME 95 fl (80.0-100.0); MEAN CORPUSCULAR HEMOGLOBIN 30 pg (27.0-31.0); MEAN CORPUSCULAR HGB CONC 32 g/dl (33.0-37.0); MEAN PLATELET VOLUME 8.8 fl (7.4-10.4); MONO % 5.7 % (1.7-9.3); PLATELET COUNT 547 K/mm3 (130-400); RED BLOOD COUNT 4.02 M/mm3 (4.10-5.30); REDCELL DISTRIBUTION WIDTH-CV 14.9 % (11.5-14.5)
[2018-02-28 20:51] LABS: CALCIUM 8.8 mg/dL (8.4-10.2); CREATININE, serum 1.15 mg/dL (0.52-1.25); POTASSIUM 4.3 mmol/L (3.4-5.0)
--- NOTE | 2018-02-28 21:00 | NUR ---
Admitted to room 315- will be started on IV antibiotics tonight- on o2 at 2L/nc, resting quietly in bed. alert/oriented, forgetful at times- daughter at bedside- need U/A,, up to bathroom but unable to void at this time-
[2018-03-01] VITALS (7 sets, daily range): BP systolic 101–162; BP diastolic 49–94; PULSE 43–97; TEMP 97.2–98.5
--- NOTE | 2018-03-01 07:15 | NUR ---
Did sleep well last night-- Up to the bathroom, voiding clear yellow urine--urine sent to lab for tests, also RSV panel nasal swab collected at this time. O2 at 2L/nc.
--- NOTE | 2018-03-01 07:29 | NUR ---
One assist up to the bathrrom. No pain or needs reported. Urine sample and RVP collected at this time.
[2018-03-01 09:14] LABS: COLLECTION METHOD CLEAN CATCH
[2018-03-01 09:23] LABS: PH 6 (5-8); SQUAMOUS EPITHELIAL 0-2 /hpf; URINE APPEARANCE Clear; URINE BACTERIA None Seen /hpf; URINE BILIRUBIN Negative (NEGATIVE); URINE BLOOD Negative (NEGATIVE); URINE COLOR Yellow; URINE GLUCOSE Negative (NEGATIVE); URINE KETONE Negative (NEGATIVE); URINE LEUKOCYTE ESTERASE Negative (NEGATIVE); URINE NITRATE Negative (NEGATIVE); URINE PROTEIN(semi-quant) Negative (NEGATIVE); URINE RBC 0-2 /hpf; URINE UROBILINOGEN Negative (NEGATIVE)
--- NOTE | 2018-03-01 12:37 | NUR ---
No change throughout the morning. No pain or needs reported. The daughter has called twice for an update of care and plans to come see the patient at 1700 tonight.
[2018-03-01 13:08] LABS: PROCALCITONIN 0.08 ng/mL (0.00-0.09)
--- NOTE | 2018-03-01 13:22 | NUR ---
Report received from hamlet PRABHAKAR.patient sitting up in recliner.denies any concerns at this time.will continue to monitor.call light in reach
--- NOTE | 2018-03-01 14:53 | NUR ---
SW and SW student met with patient to discuss discharge planning. Patient lives in the [facility] home plus in [place], [place]. Patients PCP is Dr Rohith Addison and she obtains her medications from [facility]. Patient uses a walker and o2 but doesnt know where she gets her o2. Patients DPOA is on EMR however she said to call Glenys Herron who is the secondary. SW will fax updates to [facility]. Patients family will transport her home at [place].
--- NOTE | 2018-03-01 18:34 | NUR ---
PT HAD AN UNEVENFUL DAY.CONTINUES ON ANTIBIOTICS FOR PNEUMONIA.OXYGEN ON 2L/NC.DENIES SOB.BED ALARM ON.LASIX BID.FLUID OVERLOAD IMPROVED.NO OTHER CONCERNS VOICED AT THIS TIME.CALL LIGHT IN REACH
--- NOTE | 2018-03-01 20:05 | NUR ---
Patient resting in chair. Denies pain or needs. Respirations even and unlabored. Lungs clear bilaterally. O2@2L via NC. Assessment WNL. Will continue to monitor.
[2018-03-01 22:48] LABS: MYCOPLASMA IGM ANTIBODIES 0.07 (0.00-0.90)
--- NOTE | 2018-03-02 03:10 | NUR ---
Patient came to door stating she didn't know how to call. Taken back to bed and provided call light education again. Pts R AC INT does not flush. New IV site started in L AC with 1 attempt. Well tolerated.
[2018-03-02 04:05] VITALS: BP 154/60; PULSE 65; TEMP 97.9
--- NOTE | 2018-03-02 05:30 | NUR ---
Pt sleeping. No distress noted. Patient has slept intermittently throughout the night.
[2018-03-02 08:02] VITALS: BP 170/97; PULSE 79; TEMP 98
--- NOTE | 2018-03-02 08:16 | NUR ---
Pt is awake and A/O but does have some forgetfulness. She denies pain or discomfort. Saline lock to left AC is free of complications. Resp. are even and unlabored on 2L O2 per NC. Pt denies any other needs at this time.
[2018-03-02 08:21] LABS: HEMOGLOBIN 11.7 g/dl (12.5-16.0); MEAN CELL VOLUME 95 fl (80.0-100.0); MEAN CORPUSCULAR HEMOGLOBIN 30 pg (27.0-31.0); MEAN CORPUSCULAR HGB CONC 32 g/dl (33.0-37.0); MEAN PLATELET VOLUME 9.1 fl (7.4-10.4); PLATELET COUNT 475 K/mm3 (130-400); RED BLOOD COUNT 3.89 M/mm3 (4.10-5.30); REDCELL DISTRIBUTION WIDTH-CV 14.8 % (11.5-14.5)
[2018-03-02 08:22] LABS: HEMATOCRIT 36.8 % (37.0-47.0)
[2018-03-02 08:32] LABS: CALCIUM 8.7 mg/dL (8.4-10.2); CREATININE, serum 0.93 mg/dL (0.52-1.25); POTASSIUM 4.6 mmol/L (3.4-5.0)
[2018-03-02 09:02] LABS: BAND 1 % (0-10); EOSINOPHIL 4 % (0-4); LYMPHOCYTE 12 % (20.0-51.0); NEUTROPHILS 78 % (42.0-75.2); PLATELET ESTIMATE INCREASED (NORMAL)
[2018-03-02 09:03] LABS: HYPOCHROMIA 1+; STOMATOCYTE 1+
[2018-03-02 11:36] VITALS: BP 138/48; PULSE 40; TEMP 98.7
[2018-03-02 16:36] VITALS: BP 125/56; PULSE 84; TEMP 97.4
[2018-03-02 19:36] VITALS: BP 126/68; PULSE 89; TEMP 97.8
--- NOTE | 2018-03-02 23:34 | NUR ---
Completed assessment and medication administration; PT A&Ox3 with shortterm memory loss with new information; Lung audible with bilateral diminished bases and LLL; PT denies pain or discomfort; IV in place to LAC with saline lock; dry cough during assessment. BS active x4; bed alarm on after multiple attempts to walk to door of room; PT denies further needs or concerns at time of exit; call light placed within reach; Will continue to monitor. CDA
[2018-03-03] VITALS (8 sets, daily range): BP systolic 122–159; BP diastolic 36–81; PULSE 62–89; TEMP 97.7–98.4
--- NOTE | 2018-03-03 06:12 | NUR ---
PT tolerated treatment, medication, and acute evening reorientation well. Bed alarm utilized for PT safety and staff awareness. PT wondered to door more than once; Reorientation successful after several attempts. PT denies further needs or concerns; Call light placed within reach; Pending report to dayshift. CDA
--- NOTE | 2018-03-03 07:14 | NUR ---
Pt continues to sleep soundly in bed, remains on 2L O2 per NC.
[2018-03-03 08:55] LABS: HEMOGLOBIN 11.7 g/dl (12.5-16.0); MEAN CELL VOLUME 95 fl (80.0-100.0); MEAN CORPUSCULAR HEMOGLOBIN 30 pg (27.0-31.0); MEAN CORPUSCULAR HGB CONC 32 g/dl (33.0-37.0); PLATELET COUNT 493 K/mm3 (130-400); RED BLOOD COUNT 3.86 M/mm3 (4.10-5.30); REDCELL DISTRIBUTION WIDTH-CV 14.9 % (11.5-14.5)
[2018-03-03 08:56] LABS: HEMATOCRIT 36.8 % (37.0-47.0)
[2018-03-03 09:05] LABS: CALCIUM 8.8 mg/dL (8.4-10.2); CREATININE, serum 0.94 mg/dL (0.52-1.25); POTASSIUM 4.5 mmol/L (3.4-5.0)
--- NOTE | 2018-03-03 09:15 | NUR ---
Pt is awake and A/Ox4, but does have some forgetfulness noted. She denies pain or discomfort. She does state she feels "a little short of breath." Pursed-liped breathing noted. O2 89-91% on 1L O2 per NC. O2 was increased to 2L, sats increased to 95%. Pt is up ambulating in room as tolerated. Denies any other needs.
[2018-03-03 09:17] LABS: BAND 2 % (0-10); EOSINOPHIL 2 % (0-4); LYMPHOCYTE 6 % (20.0-51.0); NEUTROPHILS 84 % (42.0-75.2); PLATELET ESTIMATE INCREASED (NORMAL)
[2018-03-03 09:18] LABS: HYPOCHROMIA 1+; STOMATOCYTE 1+
--- NOTE | 2018-03-03 14:44 | NUR ---
Pt is sleeping soundly in bed.
--- NOTE | 2018-03-03 18:06 | NUR ---
Pt has had an overall uneventful shift. Daughter and son and law are at bedside. Denies any needs, will monitor.
--- NOTE | 2018-03-03 23:54 | NUR ---
Completed medication administration and assessment on patient; PT tolerated all well; IV completed with saline lock at completion. PT A&Ox3 with intermittent evening confusion; PT able to AMB well within room. PT june to Sunday03/04/2018 per report; PT denied further needs a time of exit; Call light placed within reach; Will continue to monitor. CDA
[2018-03-04 03:48] VITALS: BP 129/43; PULSE 65; TEMP 97.9
[2018-03-04 06:08] LABS: BASO # 0.1 (0.0-0.2); BASO % 0.7 % (0.0-2.0); EOS # 0.4 (0.0-0.7); EOS % 3.7 % (0-4.0); GRAN # 8.2 (1.4-6.5); GRAN % 78.1 % (42.2-75.2); HEMOGLOBIN 11.5 g/dl (12.5-16.0); LYMPH # 0.8 (1.2-3.4); LYMPH % 7.5 % (20.0-51.0); MEAN CELL VOLUME 94 fl (80.0-100.0); MEAN CORPUSCULAR HEMOGLOBIN 31 pg (27.0-31.0); MEAN CORPUSCULAR HGB CONC 32 g/dl (33.0-37.0); MEAN PLATELET VOLUME 9.1 fl (7.4-10.4); MONO # 0.9 (0.1-0.6); MONO % 8.7 % (1.7-9.3); PLATELET COUNT 448 K/mm3 (130-400); RED BLOOD COUNT 3.76 M/mm3 (4.10-5.30); REDCELL DISTRIBUTION WIDTH-CV 14.8 % (11.5-14.5)
[2018-03-04 06:13] LABS: HEMATOCRIT 35.5 % (37.0-47.0)
[2018-03-04 06:19] LABS: CALCIUM 8.7 mg/dL (8.4-10.2); CREATININE, serum 1.08 mg/dL (0.52-1.25); POTASSIUM 4.4 mmol/L (3.4-5.0)
--- NOTE | 2018-03-04 06:59 | NUR ---
Patient is resting in bed on left side. Has no concerns at this time. Call light is within reach.
[2018-03-04 07:13] VITALS: BP 159/66; PULSE 68; TEMP 97.9
--- NOTE | 2018-03-04 07:15 | NUR ---
Sleeping soundly at this time. No pain or needs reported. The call light is in place.
--- NOTE | 2018-03-04 07:17 | NUR ---
PT tolerated IV and medications well. PT resting throughout night with little assistive needs; PT required some minimal reorientation during evening hours; PT denied further needs at time of exit; Call light placed within reach; Report given to VANNA Oneill and VANNA Amador. CDA
--- NOTE | 2018-03-04 10:20 | NUR ---
PT WALKED APPROX 50 FT WITH PT AND RT ON ROOM AIR. SPO2 87% O2 ON @ 2 LPM. PT WALKED BACK TO ROOM ON 2 LPM, SPO2 90%. AT REST SITTING DOWN SPO2 92%. PT LEFT ON 2 LPM NC.
--- NOTE | 2018-03-04 11:33 | NUR ---
ASHLEY contacted the patient's daughter, Glenys, to review discharge plan and discuss therapies recommendation for SNF; due to the patient qualifying for home oxygen. The patient's daughter reports that she would like for the patient to return back to [facility] upon discharge and that the patient already has oxygen supplies at the [facility]. The patient's daughter reports that she would be agreeable for home health services for the PT/OT. ASHLEY has contacted and updated Ruthy at [facility]. ASHLEY to continue to follow.
--- NOTE | 2018-03-04 12:02 | NUR ---
Initial visit; Patient thanked Director Of Radio Services for looking in on her and wishing her well and keeping her in Director Of Radio Services's prayers.
--- NOTE | 2018-03-04 13:48 | NUR ---
The patient is to discharge today, 03/04, back to [facility] with home health services for retirement/PT/OT [facility] by [facility]. Transportation to be by private car, via the patient's daughter. SW had explained the IM form to the patient's daughter, Glenys, via phone. The patient's daughter gave SW her verbal consent. No additional needs at this time.
--- NOTE | 2018-03-04 18:22 | NUR ---
Patient discharged to LTC care facility. Daughter transported patient. Left unit VIA wc. Report called to Ruthy.
== END 2018-03-04 17:45 | disposition home health service (06) | DRG 193 ==
LOC: MEDICAL 17:29
PROVIDERS: Hospitalist; Nurse Practitioner; Physician Assistant; ADMIT Hospitalist
DX: J15.7 Pneumonia due to Mycoplasma pneumoniae (principal); I50.33 Acute on chronic diastolic (congestive) heart failure; J90 Pleural effusion, not elsewhere classified; I13.0 Hypertensive heart and chronic kidney disease with heart failure and stage 1 through stage 4 chronic kidney disease, or unspecified chronic kidney disease; N18.3 Chronic kidney disease, stage 3 (moderate); I48.91 Unspecified atrial fibrillation; F17.210 Nicotine dependence, cigarettes, uncomplicated; E78.5 Hyperlipidemia, unspecified
CPT/HCPCS: 99223-AI; 99232-AI; 99233-AI; 99239; A4216; J0456; J0696; J1940; J7050

== ENCOUNTER → 2018-02-28 | Emergency (ER) | payer MEDICARE, BC ==
[~2018-02-28] MED LIST changes: +NORCO 325 MG-51 TAB PO; +PREDNISONE10 MG PO; +ZOFRAN 4MG T4 MG/TAB PO
== END ==
LOC: COL.ER 17:01
DX: Z72.9 Problem related to lifestyle, unspecified (principal)